=== PATIENT | male | born 2000 | race African-American/Black ===

== ENCOUNTER 2021-11-23 15:36 | Emergency (ER) | payer MEDICAID ==
[2021-11-23] MEDS ORDERED: Sodium Chloride 0.9% 10 ML Syringe FLUSH PRN (15:50)
[2021-11-23] MEDS ORDERED: Lactated Ringers 1,000 ML IV ONE (15:52)
[2021-11-23 16:27] LABS: CHLORIDE,CL 92 mmol/L (98-107); SODIUM,NA 133 mmol/L (136-145)
[2021-11-23 16:28] LABS: ANION GAP 19.3 mmol/L (5-15); ESTIMATED GFR 47 mL/min (>=60)
== END 2021-11-23 17:21 | disposition left against medical advice (07) ==
LOC: VM.ED 15:36
DX: T67.5XXA Heat exhaustion, unspecified, initial encounter (principal); Z91.09 Other allergy status, other than to drugs and biological substances
CPT/HCPCS: 80053; 83735; 85025; 96360; 99283; 99284-25; J7120